=== PATIENT | female | born 1960 | race Caucasian/White ===

== ENCOUNTER → 2021-08-10 | Outpatient (CLI) | payer OTHER | END | disposition home or self-care (01) | LOC: OIH 10:32 | PROVIDERS: ATTEND Internal Medicine | DX: Z13.6 Encounter for screening for cardiovascular disorders (principal) | CPT/HCPCS: 75571 ==

== ENCOUNTER → 2022-02-03 | Outpatient (CLI) | payer BC | END | disposition home or self-care (01) | LOC: RAH 15:01 | PROVIDERS: ATTEND Internal Medicine | DX: M19.011 Primary osteoarthritis, right shoulder (principal); M25.511 Pain in right shoulder | CPT/HCPCS: 73030 ==

== ENCOUNTER 2024-12-15 14:24 | Emergency (ER) | payer BC, MEDICARE ==
[~2024-12-15] VITALS: Ht 170.2 cm; Wt 73.0 kg
--- NOTE | 2024-12-15 15:22 | ERN ---
General Chief Complaint: FOOT INJURY/PAIN Stated Complaint: RIGHT FOOT PAIN Source: patient History of Present Illness Initial Comments PATIENT IS A 64-YEAR-OLD FEMALE COMING IN TO BE EVALUATED FOR FOOT PAIN. PATIENT STATES THAT YESTERDAY SHE ALMOST FELL BUT HIT HERSELF IN THE FOOT IN HIS NOW HAVING DISCOMFORT IN HER FOOT. SHE STATES THAT THERE IS NO OTHER COMPLAINT. Allergies: Coded Allergies: No Known Drug Allergies (Unverified Allergy, Unknown, 12/15/24) Past Medical History Past Medical History: High Cholesterol, Heart Disease, Hyperthyroid Past Surgical History: None ROS Dictation CONSTITUTIONAL: NO CHILLS, NO FEVER, NO WEAKNESS, NO DIAPHORESIS, NO MALAISE. HEAD/FACE: NO SIGNS OF TRAUMA. EENT: NO EYE PAIN, NO BLURRED VISION, NO TEARING, NO DOUBLE VISION, NO EAR PAIN, NO EAR DISCHARGE, NO NOSE PAIN, NO NASAL CONGESTION, NO THROAT PAIN, NO THROAT SWELLING, NO MOUTH PAIN. RESPIRATORY: NO COUGH, NO ORTHOPNEA, NO SOB, NO STRIDOR, NO WHEEZING. CARDIOVASCULAR: NO CHEST PAIN, NO EDEMA, NO PALPITATIONS, NO SYNCOPE. GASTROINTESTINAL/ABDOMINAL: NO ABDOMINAL PAIN, NO CONSTIPATION, NO DIARRHEA, NO NAUSEA, NO VOMITING. GENITOURINARY: NO ABNORMAL DISCHARGE, NO DYSURIA, NO FREQUENT URINATION, NO HEMATURIA. NO COMPLAINTS OF PAIN IN THE GENITALS. MUSCULOSKELETAL: NO BACK PAIN, NO GOUT, NO JOINT PAIN, NO JOINT SWELLING, NO MUSCLE PAIN, NO MUSCLE STIFFNESS, NO NECK PAIN. INTEGUMENTARY: NO CHANGE IN COLOR, NO CHANGE IN HAIR/NAILS, NO DRYNESS, NO LESION, NO LUMPS, NO RASH. NEUROLOGICAL/PSYCH: NO ANXIETY, NOT DEPRESSED, NO EMOTIONAL PROBLEM, NO HEADACHE, NO NUMBNESS, NO PRE-EXISTING DEFICIT, NO HISTORY OF SEIZURES, NO TREMORS, NO WEAKNESS. HEMATOLOGIC/LYMPHATIC: NOT ANEMIC, NO HISTORY OF BLOOD CLOTS, NO APPARENT BLEEDING, NO BRUISING, GLANDS NOT SWOLLEN. ALL SYSTEMS NEGATIVE, EXCEPT NOTED. Physical Exam Physical Exam Dictation VITAL SIGNS: REVIEWED. GENERAL APPEARANCE: ALERT, ORIENTED X3, NO ACUTE DISTRESS, OBESE. HEAD AND FACE: NON-TRAUMATIC. EYES: PERRL, PINK CONJUNCTIVAS, EYELID NO TRAUMA, ANTERIOR CHAMBER CLEAR. EARS: PINNAS INTACT AND NO SIGNS OF TRAUMA OR ERYTHEMA. EAR CANALS CLEAR AND NO DISCHARGE. TMS NO ERYTHEMA. NOSE: NO DISCHARGE, NO BLEEDING. OROPHARYNX: MOUTH NORMAL, TEETH NO CARIES, TONGUE PINK. PHARYNX CLEAR, NO ERYTHEMA. TONSILS NO EXUDATES, NO ABSCESSES NOTED. MUCOUS MEMBRANE MOIST. NECK: SUPPLE, NON-TENDER, NO THYROMEGALY, NO MASSES, NO JVD, NO BRUITS. BREAST: DEFERRED. CHEST: NO TENDERNESS, NO CREPITUS, NO PARADOXICAL MOVEMENT, NO RETRACTIONS. LUNGS: CLEAR, WELL-VENTILATED, SYMMETRIC, NO RALES, NO WHEEZING, NO RHONCHI, NO STRIDOR, GOOD BREATH SOUNDS BILATERALLY. HEART: REGULAR RATE, REGULAR RHYTHM, NO MURMUR, NO GALLOPS. VASCULAR: NO PERIPHERAL EDEMA. ABDOMEN: SOFT, POSITIVE BOWEL SOUNDS, NONDISTENDED, NO GUARDING, NONTENDER, NO REBOUND, NO MASSES NO HEPATOMEGALY, NO SPLENOMEGALY, NO SHAH'S SIGN, NO HERNIAS. RECTAL: DEFERRED. GENITAL: DEFERRED. NEUROLOGICAL: NORMAL SPEECH, GROSS MOTOR FUNCTION INTACT, GROSS SENSORY FUNCTION INTACT. MUSCULOSKELETAL: NECK NONTENDER, FULL RANGE OF MOTION, BACK NONTENDER, FULL RANGE OF MOTION. EXTREMITIES: NONTENDER, FULL RANGE OF MOTION. SKIN: COLOR PINK, DRY, NO TURGOR, NO RASH, NO LACERATIONS, NO ABRASIONS, NO CONTUSIONS. LYMPHATICS: DEFERRED. Results Laboratory and Microbiology Labs Reviewed?: Yes EKG/XRAY/US/CT/MRI X-RAY Comment LEFT FOOT X-RAY- 5TH METATARSAL FRACTURE MDM MDM: DIFFERENTIAL DIAGNOSIS: FOOT CONTUSION, 5TH METATARSAL FRACTURE, PATIENT IS A 64-YEAR-OLD FEMALE COMING IN TO BE EVALUATED FOR LEFT FOOT PAIN. PATIENT STATES THAT HE SHE WAS COMING DOWN THE STEPS IN HIS STEPPED QUICKLY AND NOW HAS LEFT FOOT PAIN. X-RAY DISCLOSE OF 5TH METATARSAL FRACTURE. ORTHO BOOT WAS PLACED. PATIENT WILL BE DISCHARGED IN STABLE CONDITION WITH A DIAGNOSIS OF 5TH METATARSAL FRACTURE. ED Course Orders Procedure Category Date Status Time Foot Comp 3+Vws Lt RAD 12/15/24 Taken 14:37 Ketorolac PHA 12/15/24 Complete Tromethamine 30mg/Ml 15:30 Current Medications Medications (Trade) Dose Ordered Sig/Vlad Route PRN Reason Start Time Stop Time Status Last Admin Dose Admin Ketorolac Tromethamine (toRADol) 30 mg ONCE ONCE IM 12/15/24 15:30 12/15/24 15:31 DC Vital Signs Date Time Temp Pulse Resp B/P (MAP) Pulse Ox O2 Delivery O2 Flow Rate FiO2 12/15/24 14:36 99.0 52 16 139/84 98 Room Air 0 DX & DISP Disposition: Discharge Departure Impression: Primary Impression: Fracture of fifth metatarsal bone Condition: Stable Scripts Naproxen (Naproxen) 500 Mg Tablet 1 TAB PO BID for pain for 7 Days, #14 TAB 0 Refills Prov: JOYCELYN AJ MD 12/15/24 Additional Instructions: FOLLOW-UP WITH PRIMARY CARE PROVIDER IN 1 TO 2 DAYS. TAKE MEDICATIONS DIRECTED HERE IN THE EMERGENCY ROOM. OKAY TO CONTINUE HOME MEDICATIONS UNLESS OTHERWISE DISCUSSED DURING YOUR VISIT IN THE EMERGENCY ROOM TODAY. RETURN TO YOUR NEAREST EMERGENCY ROOM IF SYMPTOMS WORSEN OR IF THERE IS NO IMPROVEMENT. CALL 911 IF YOU NEED IMMEDIATE ASSISTANCE. TAKE TYLENOL [id number] NEEDED AND IF NO CONTRAINDICATIONS ARE PRESENT. INCREASE ORAL HYDRATION. A WOUND CULTURE OR URINE CULTURE WAS ORDERED HERE IN THE EMERGENCY ROOM DEPARTMENT PLEASE FOLLOW-UP WITH PRIMARY CARE PROVIDER AND ADVISE THEM TO GET REPEAT PORTS FROM OUR FACILITY. IF YOU HAD ANY AMAN WRAP/SPLINTS THAT WERE APPLIED HERE, PLEASE DO NOT REMOVE THEM UNTIL YOU SEE YOUR PRIMARY CARE OR SPECIALTY. REFERRALS: Referrals: SOM WATERMAN MD (PCP) VENESSA JAY MD Time of Disposition: 15:50 JOYCELYN AJ MD Dec 15, 2024 15:22
[2024-12-15] MEDS ORDERED: NAPR-1194 PO (15:51)
--- NOTE | 2024-12-15 15:55 | HMCIMG ---
Exam Type: FOOT COMP 3+VWS LT Clinical Information: FALL Comparison: None Findings and impression: Oblique fracture mid shaft fifth metatarsal. No other abnormalities.
--- NOTE | 2024-12-15 16:01 | NUR ---
LT FOOT BOOT APPLIED TO PT, PT TOLERATED WELL
[2024-12-15] MEDS: ketOROlac 30MG VIAL (30MG/ML) IM ONE (16:05)
[2024-12-15 16:10] VITALS: BP 128/78; PULSE 60; RESP 16; TEMP 98.7; O2SAT 98
== END 2024-12-15 16:25 | disposition home or self-care (01) ==
LOC: EDH 14:24
DX: S92.351A Displaced fracture of fifth metatarsal bone, right foot, initial encounter for closed fracture (principal); E78.00 Pure hypercholesterolemia, unspecified; W18.39XA Other fall on same level, initial encounter; Y93.89 Activity, other specified; Y92.89 Other specified places as the place of occurrence of the external cause; Y99.8 Other external cause status
CPT/HCPCS: 99283; 73630; 96372; J1885